=== PATIENT | female | born 1945 | race Two or more races ===

== ENCOUNTER 2018-11-29 16:34 | Emergency (ER) | payer OTHER ==
[~2018-11-29] VITALS: Ht 170.2 cm; Wt 113.4 kg
[~2018-11-29 16:34] MED LIST: AMARYL PO; CLONAZEPAM0.5 MG/TAB PO; NEURONTIN800 MG PO; PAXIL20 MG PO; XALATAN
[2018-11-29] MEDS ORDERED: FORTAMET500 MG PO (16:59)
[2018-11-29] MEDS ORDERED: MUCINEX1200 MG PO (19:05)
[2018-11-29] MEDS ORDERED: ZITHROMAX500 MG PO (19:05)
== END 2018-11-29 19:40 | disposition home or self-care (01) ==
LOC: ER 16:34
DX: J06.9 Acute upper respiratory infection, unspecified (principal)

== ENCOUNTER 2021-04-02 10:52 | Outpatient (CLI) | payer OTHER ==
[~2021-04-02 10:52] MED LIST changes: +FORTAMET500 MG PO; +MUCINEX1200 MG PO; +ZITHROMAX500 MG PO
== END 2021-04-02 10:58 | disposition home or self-care (01) ==
LOC: RAD 10:52
PROVIDERS: ATTEND Orthopaedic Surgery
DX: M25.561 Pain in right knee (principal); M25.562 Pain in left knee

== ENCOUNTER 2021-09-03 13:36 | Outpatient (CLI) | payer OTHER | END 2021-09-03 13:41 | disposition home or self-care (01) | LOC: RAD 13:36 | PROVIDERS: ATTEND Orthopaedic Surgery | DX: M25.511 Pain in right shoulder (principal) ==

== ENCOUNTER 2021-10-09 06:47 | Outpatient (CLI) | payer OTHER | END 2021-10-09 06:57 | disposition home or self-care (01) | LOC: LAB 06:47 | PROVIDERS: ATTEND Orthopaedic Surgery | DX: D64.89 Other specified anemias (principal); E88.89 Other specified metabolic disorders; D68.8 Other specified coagulation defects; N39.0 Urinary tract infection, site not specified; Z22.322 Carrier or suspected carrier of Methicillin resistant Staphylococcus aureus; I10 Essential (primary) hypertension; I49.8 Other specified cardiac arrhythmias ==

== ENCOUNTER 2021-10-17 10:45 | Inpatient (IN) | payer OTHER ==
[~2021-10-17] VITALS: Ht 167.6 cm; Wt 113.4 kg
[2021-10-28] MEDS ORDERED: BACTRIM DS TAB1 EACH (10:52)
[2021-10-28] MEDS ORDERED: SIMVASTATIN40 MG (10:53)
[2021-10-28] MEDS ORDERED: FLONASE16 GM (10:53)
[2021-10-28] MEDS ORDERED: LATANOPROST2.5 ML (10:53)
[2021-10-28] MEDS ORDERED: MECLIZINE HCL25 MG (10:53)
[2021-10-28] MEDS ORDERED: LANTUS SOL100 UNIT/1 (10:53)
[2021-10-28] MEDS ORDERED: RESTORIL30 MG (10:53)
[2021-10-28] MEDS ORDERED: GABAPENTIN600 MG (10:54)
[2021-10-28] MEDS ORDERED: VITAMIN D31250 MCG (10:54)
[2021-10-28] MEDS ORDERED: VITAMIN B-12500 MCG (10:54)
[2021-10-28] MEDS ORDERED: PIOGLITAZONE HC30 MG (10:54)
[2021-10-28] MEDS ORDERED: GLIMEPIRIDE4 MG (10:55)
== END 2021-10-31 10:28 | disposition home or self-care (01) | DRG 470 ==
LOC: SURH 10-22 07:00 → O/R 10-28 07:51 → SURH 10-28 18:44
PROVIDERS: ADMIT Orthopaedic Surgery; ATTEND Orthopaedic Surgery
PROC: 3E0F7SF Introduction of Other Gas into Respiratory Tract, Via Natural or Artificial Opening (ICD-10-PCS; 2021-10-28)
PROC: 0SRD0J9 Replacement of Left Knee Joint with Synthetic Substitute, Cemented, Open Approach (ICD-10-PCS; principal; 2021-10-28 07:00)
DX: M17.12 Unilateral primary osteoarthritis, left knee (principal)

== ENCOUNTER 2021-10-22 11:30 | Outpatient (CLI) | payer OTHER | END 2021-10-22 11:31 | disposition home or self-care (01) | LOC: LAB 11:30 | PROVIDERS: ATTEND Orthopaedic Surgery | DX: N39.0 Urinary tract infection, site not specified (principal); Z03.818 Encounter for observation for suspected exposure to other biological agents ruled out ==